=== PATIENT | male | born 1965 | race Caucasian/White ===

== ENCOUNTER 2023-03-30 19:09 | Emergency (ER) | payer BC ==
[~2023-03-30] VITALS: Ht 177.8 cm; Wt 81.6 kg
[2023-03-30 19:24] VITALS: BP_SYST 151
--- NOTE | 2023-03-30 19:24 | NUR ---
Triaged and placed patient back to the waiting room. No acute respiratory distress at this time. VSS. Informed patient to notify ED staff for any changes in condition or worsening of symptoms while waiting to be seen by a provider. Patient verbalized understanding.
--- NOTE | 2023-03-30 19:28 | NUR ---
Patient placed in ER bed 5 for MD evaluation. Bed placed in lowest position with side rails up. Report given to Shirley LEWIS for continuity of care. Instructed to notify ED staff for any changes in condition or worsening of symptoms while waiting to be seen by a provider. Patient verbalized understanding.
--- NOTE | 2023-03-30 19:30 | NUR ---
Dr. Garg at bedside examining the patient.
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
[2023-03-30] MEDS ORDERED: BACITRACIN 1 GM OINT TP ONE (19:45)
[2023-03-30] MEDS ORDERED: DIPHTH,PERTUSS(ACELL),TET VAC 0.5 ML VIAL (Tdap) I.M. ONE (19:45)
--- NOTE | 2023-03-30 19:45 | NUR ---
DR NIEVES AT BEDSIDE CLEANING LACERATION
--- NOTE | 2023-03-30 20:02 | NUR ---
Patient given written and verbal discharge instructions and verbalizes understanding. ER MD discussed with patient the results and treatment provided. Patient in stable condition. ID arm band removed. NO Rx given. Patient educated on pain management and to follow up with PMD. Pain Scale 0/10. Opportunity for questions provided and answered. Medication side effect fact sheet provided.
== END 2023-03-30 20:02 | disposition home or self-care (01) ==
LOC: SED 19:09
DX: S01.01XA Laceration without foreign body of scalp, initial encounter (principal); S09.90XA Unspecified injury of head, initial encounter; V17.0XXA Pedal cycle driver injured in collision with fixed or stationary object in nontraffic accident, initial encounter; Y93.89 Activity, other specified; Y92.89 Other specified places as the place of occurrence of the external cause; Y99.8 Other external cause status
CPT/HCPCS: 99283